=== PATIENT | female | born 1990 | race Caucasian/White ===

== ENCOUNTER 2017-03-15 19:38 | Inpatient (IN) ==
[2017-03-15 20:30] LABS: Basophils % 0.4 % (0.0-0.8); Eosinophils # 0.1 10*3/uL (0.0-0.87); Eosinophils % 1.3 % (0.00-10.9); Hematocrit 32.5 VOL% (35.7-47.0); Hemoglobin 10.9 GM/DL (12.0-16.0); Immature Granulocytes Absolute 0.11 #; Lymphocytes # 1.1 10*3/uL (1.4-4.0); Lymphocytes % 10.4 % (21.3-54.2); Mean Corpuscular HGB Conc 33.5 GM/DL (32-36); Mean Corpuscular Hemoglobin 28 PG (27-34); Mean Corpuscular Volume 84.2 FL (87-102); Mean Platelet Volume 11.4 FL (9.6-12.0); Monocytes # 0.8 10*3/uL (0.11-0.8); Monocytes % 7.1 % (1.7-12.7); Neutrophils # 8.6 10*3/uL (1.4-7.4); Neutrophils % 79.8 % (38.7-73.9); Platelet Count 210 T/CUMM (130-400); Red Blood Count 3.86 MC/CUMM (3.8-5.5); Red Cell Distribution Width 11.6 % (9.3-17.3); White Blood Count 10.8 T/CUMM (4-12)
[2017-03-15 20:53] LABS: INR 0.9; PT Patient Result 9.4 SECS; Partial Thromboplastin Time 24.2 SECS (0-40)
[2017-03-15] MEDS: LABETALOL 200 MG TABLET PO SCH (21:06)
[2017-03-15 21:09] LABS: Albumin 2.8 G/DL (3.4-5.0); Bilirubin,Total 0.4 MG/DL (0.2-1.0); Calcium 8.4 MG/DL (8.5-10.1); Total Protein 6.5 G/DL (6.4-8.3)
[2017-03-15] MEDS: LACTATED RINGERS 1,000 ML IV SCH (21:11)
[2017-03-16] MEDS ORDERED: AMPICILLIN INJ 2,000 MG in SODIUM CHLORIDE 0.9% 100 ML IV ONE
[2017-03-16] MEDS: BUTORPHANOL 2 MG/ML VIAL IV PRN ×2 (00:59→05:56)
[2017-03-16] MEDS: ONDANSETRON 4 MG/2 ML VIAL IV PRN (01:00)
[2017-03-16] MEDS ORDERED: AMPICILLIN INJ 1,000 MG in SODIUM CHLORIDE 0.9% 100 ML IV SCH (04:00)
[2017-03-16] MEDS ORDERED: OXYTOCIN/LR 20 UNIT/1,000 ML BAG IV ONE ×2 (08:09→09:22)
[2017-03-16] MEDS ORDERED: FAMOTIDINE 20 MG/2 ML VIAL IV ONE (08:09)
[2017-03-16] MEDS ORDERED: CITRIC ACID/SODIUM CITRATE 30 ML UDCUP PO ONE (08:09)
[2017-03-16] MEDS ORDERED: AMPICILLIN 2,000 MG VIAL ONE (08:14)
[2017-03-16] MEDS ORDERED: MEASLES/MUMPS/RUBELLA VACCINE 0.5 ML VIAL SUBCUT ONE (09:22)
[2017-03-16] MEDS ORDERED: ACETAMINOPHEN 325 MG TABLET PO PRN (09:22)
[2017-03-16] MEDS ORDERED: WITCH HAZEL PADS 100/JAR TOP PRN (09:22)
[2017-03-16] MEDS ORDERED: DIPH/TET/ACEL PERT BOOSTER VACCINE 0.5 ML VIAL IM ONE (09:22)
[2017-03-16] MEDS ORDERED: BENZOCAINE 20%/MENTHOL 0.5% SPRAY 56 GM CAN TOP PRN (09:22)
[2017-03-16] MEDS ORDERED: BISACODYL 10 MG SUPP RECTAL PRN (09:22)
[2017-03-16] MEDS ORDERED: RHO(D) IMMUNE GLOBULIN 300 MCG SYRINGE IM ONE (09:22)
[2017-03-16] MEDS ORDERED: HYDROCORTISONE 2.5% RECTAL CREAM 30 GM TUBE TOP PRN (09:22)
[2017-03-16] MEDS ORDERED: ONDANSETRON 4 MG/2 ML VIAL IV PRN ×2 (09:22→09:47)
[2017-03-16] MEDS ORDERED: oxyCODONE/ACETAMINOPHEN 5-325 MG TABLET PO PRN (09:22)
[2017-03-16] MEDS ORDERED: LANOLIN 50% CREAM 0.3 OZ TUBE TOP PRN (09:22)
[2017-03-16] MEDS ORDERED: fentaNYL 100 MCG/2 ML VIAL ONE (09:36)
[2017-03-16] MEDS ORDERED: MORPHINE 10 MG/10 ML VIAL ONE (09:37)
[2017-03-16] MEDS ORDERED: KETOROLAC 30 MG/1 ML VIAL ONE (09:39)
[2017-03-16] MEDS ORDERED: diphenhydrAMINE 50 MG/1 ML VIAL IV PRN (09:47)
[2017-03-16] MEDS ORDERED: hydrOXYzine HCL 25 MG/1 ML VIAL IM PRN (09:47)
[2017-03-16] MEDS ORDERED: HYDROmorphone 2 MG/1 ML VIAL IV PRN (09:47)
[2017-03-16] MEDS: LABETALOL 200 MG TABLET PO SCH ×2 (11:03→21:45)
[2017-03-16 11:06] LABS: Apearance,Urine Slightly Hazy (Clear); Bilirubin,Urine Negative (Negative); Blood, Urine Small mg/dL (Negative); Glucose,Urine (UA) Negative (Negative); Ketones,Urine Negative (Negative); Nitrite,Urine Negative (Negative); Protein,Urine Negative; RBC,Urine <1 /HPF (0-4); Squamous Epithelial Cell,Urine Occasional /HPF (0-10); Urine Color Yellow (Yellow); Urine Specific Gravity 1.004 (1.001-1.035); Urine Urobilinogen < 2.0 EU/DL (0.2-1.0)
[2017-03-16] MEDS ORDERED: ACETAMINOPHEN 1,000 MG/100 ML VIAL IV ONE (15:39)
[2017-03-16] MEDS ORDERED: LABETALOL 100 MG TABLET PO SCH (16:41)
[2017-03-16] MEDS ORDERED: ceFAZolin 1,000 MG VIAL IM SCH (17:30)
[2017-03-16] MEDS ORDERED: ceFAZolin 1,000 MG VIAL IV SCH (17:56)
[2017-03-16] MEDS: ceFAZolin 1,000 MG in SYRINGE 1 EACH IV SCH (18:18)
[2017-03-16] MEDS: LACTATED RINGERS 1,000 ML IV SCH ×3 (20:34→21:28)
[2017-03-16] MEDS: SODIUM CHLORIDE 0.9% 1,000 ML IV SCH (21:28)
[2017-03-16] MEDS: DOCUSATE SODIUM 100 MG CAPSULE PO SCH (21:45)
[2017-03-17] MEDS: IBUPROFEN 800 MG TABLET PO PRN ×4 (00:35→21:11)
[2017-03-17] MEDS: oxyCODONE/ACETAMINOPHEN 5-325 MG TABLET PO PRN ×2 (00:35→16:49)
[2017-03-17] MEDS ORDERED: SODIUM CHLORIDE 0.9% 50 ML IV ONE (02:00)
[2017-03-17] MEDS: ceFAZolin 1,000 MG in SYRINGE 1 EACH IV SCH ×2 (02:03→09:40)
[2017-03-17] MEDS: LACTATED RINGERS 1,000 ML IV SCH (04:31)
[2017-03-17 06:18] LABS: Basophils % 0.2 % (0.0-0.8); Eosinophils # 0.1 10*3/uL (0.0-0.87); Eosinophils % 0.8 % (0.00-10.9); Hematocrit 23.7 VOL% (35.7-47.0); Hemoglobin 7.6 GM/DL (12.0-16.0); Immature Granulocytes % 0.7 %; Mean Corpuscular HGB Conc 32.1 GM/DL (32-36); Mean Corpuscular Hemoglobin 27 PG (27-34); Mean Corpuscular Volume 84.9 FL (87-102); Mean Platelet Volume 11.2 FL (9.6-12.0); Monocytes # 0.9 10*3/uL (0.11-0.8); Monocytes % 6.7 % (1.7-12.7); Neutrophils # 11.6 10*3/uL (1.4-7.4); Neutrophils % 84.6 % (38.7-73.9); Platelet Count 186 T/CUMM (130-400); Red Blood Count 2.79 MC/CUMM (3.8-5.5); Red Cell Distribution Width 11.8 % (9.3-17.3); White Blood Count 13.7 T/CUMM (4-12)
[2017-03-17] MEDS: FERROUS SULFATE 325 MG TABLET PO SCH ×3 (09:39→21:11)
[2017-03-17] MEDS: LABETALOL 200 MG TABLET PO SCH ×2 (09:39→21:11)
[2017-03-17] MEDS: DOCUSATE SODIUM 100 MG CAPSULE PO SCH ×2 (09:39→21:11)
[2017-03-17] MEDS: ONDANSETRON 4 MG/2 ML VIAL IV PRN (16:50)
[2017-03-17] MEDS ORDERED: oxyCODONE/ACETAMINOPHEN 5-325 MG TABLET PO PRN (17:05)
[2017-03-17] MEDS: MAGNESIUM HYDROXIDE SUSP 30 ML UDCUP PO PRN (22:24)
[2017-03-18] MEDS: IBUPROFEN 800 MG TABLET PO PRN ×2 (05:12→16:38)
[2017-03-18] MEDS: oxyCODONE/ACETAMINOPHEN 5-325 MG TABLET PO PRN ×5 (05:13→21:10)
[2017-03-18] MEDS: LACTATED RINGERS 1,000 ML IV SCH (05:32)
[2017-03-18] MEDS: SODIUM CHLORIDE 0.9% 1,000 ML IV SCH (05:32)
[2017-03-18 07:58] LABS: Microcytosis 1+
[2017-03-18] MEDS: FERROUS SULFATE 325 MG TABLET PO SCH ×3 (08:57→21:11)
[2017-03-18] MEDS: LABETALOL 200 MG TABLET PO SCH ×2 (08:58→21:10)
[2017-03-18] MEDS: DOCUSATE SODIUM 100 MG CAPSULE PO SCH ×2 (08:58→21:10)
[2017-03-18] MEDS: MAGNESIUM HYDROXIDE SUSP 30 ML UDCUP PO PRN (16:38)
[2017-03-19] MEDS: oxyCODONE/ACETAMINOPHEN 5-325 MG TABLET PO PRN ×2 (04:22→11:50)
[2017-03-19] MEDS: IBUPROFEN 800 MG TABLET PO PRN ×2 (04:22→09:58)
[2017-03-19] MEDS: LABETALOL 200 MG TABLET PO SCH (09:55)
[2017-03-19] MEDS: FERROUS SULFATE 325 MG TABLET PO SCH (09:55)
[2017-03-19] MEDS: DOCUSATE SODIUM 100 MG CAPSULE PO SCH (09:55)
[2017-03-19 10:29] VITALS: BP 123/80
== END 2017-03-19 14:20 | disposition home or self-care (01) | DRG 766 ==
LOC: N.LAB 19:38 → N.LD 19:45 → N.OB 03-16 16:47
PROVIDERS: ADMIT Specialist; ATTEND Specialist
PROC: LDCSECT (ICD-10-PCS; 2017-03-16 08:00)

== ENCOUNTER 2022-03-22 19:52 | Inpatient (IN) ==
[2022-03-22 20:25] LABS: Mucus,Urine Occasional /LPF (Occasional); RBC,Urine 2 /HPF (0-4); Squamous Epithelial Cell,Urine Occasional /HPF (0-10)
[2022-03-22 20:26] LABS: Bilirubin,Urine Negative (Negative); Blood, Urine Negative (Negative); Glucose,Urine (UA) Negative (Negative); Ketones,Urine Negative (Negative); Nitrite,Urine Negative (Negative); Protein,Urine Negative (Negative); Urine Appearance Clear (Clear); Urine Color Yellow (Yellow); Urine pH 7.5 (4.5-8.0)
[2022-03-22] MEDS ORDERED: BUTORPHANOL 2 MG/ML VIAL IV PRN (20:46)
[2022-03-22] MEDS ORDERED: MEPERIDINE 50 MG/1 ML VIAL IV PRN (20:46)
[2022-03-22] MEDS ORDERED: CARBOPROST TROMETHAMINE 250 MCG/ML AMP IM PRN (20:46)
[2022-03-22] MEDS ORDERED: METHYLERGONOVINE 0.2 MG/1 ML AMP IM PRN (20:46)
[2022-03-22] MEDS ORDERED: ONDANSETRON 4 MG/2 ML VIAL IV PRN (20:46)
[2022-03-22] MEDS ORDERED: LACTATED RINGERS 250 ML IV ONE (20:46)
[2022-03-22] MEDS ORDERED: MEPERIDINE 25 MG/1 ML VIAL IV PRN (20:46)
[2022-03-22] MEDS ORDERED: TRANEXAMIC ACID 1,000 MG in SODIUM CHLORIDE 0.9% 100 ML IV PRN (20:46)
[2022-03-22] MEDS ORDERED: miSOPROStoL 200 MCG TABLET RECTAL PRN (20:46)
[2022-03-22] MEDS ORDERED: LACTATED RINGERS 500 ML IV PRN (20:46)
[2022-03-22] MEDS ORDERED: OXYTOCIN/LR 20 UNIT/1,000 ML BAG IV ONE (20:46)
[2022-03-22] MEDS ORDERED: FAMOTIDINE 20 MG/2 ML VIAL IV SCH (21:00)
[2022-03-22 21:32] LABS: Basophils % 0.2 % (0.0-0.8); Eosinophils # 0.2 10*3/uL (0.0-0.87); Eosinophils % 1.4 % (0.00-10.9); Hematocrit 34.8 VOL% (35.7-47.0); Hemoglobin 11.4 GM/DL (12.0-16.0); Immature Granulocytes % 0.8 %; Immature Granulocytes Absolute 0.09 #; Lymphocytes # 1.3 10*3/uL (1.4-4.0); Lymphocytes % 10.7 % (21.3-54.2); Mean Corpuscular HGB Conc 32.8 GM/DL (32-36); Mean Corpuscular Volume 81.3 FL (87-102); Mean Platelet Volume 11.5 FL (9.6-12.0); Monocytes # 0.9 10*3/uL (0.11-0.8); Monocytes % 7.4 % (1.7-12.7); Neutrophils % 79.5 % (38.7-73.9); Platelet Count 240 T/CUMM (130-400); Red Blood Count 4.28 MC/CUMM (3.8-5.5); Red Cell Distribution Width 12.9 % (9.3-17.3); White Blood Count 11.7 T/CUMM (4-12)
[2022-03-22] MEDS: LACTATED RINGERS 1,000 ML IV SCH (21:33)
[2022-03-22] MEDS: BUTORPHANOL 1 MG/ML VIAL IV PRN ×2 (22:22→23:40)
[2022-03-23] MEDS ORDERED: CITRIC ACID/SODIUM CITRATE 30 ML UDCUP PO ONE (01:00)
[2022-03-23] MEDS ORDERED: diphenhydrAMINE 50 MG/1 ML VIAL IV PRN ×2 (01:00)
[2022-03-23] MEDS ORDERED: ePHEDrine 50 MG/ML VIAL IV PRN (01:00)
[2022-03-23] MEDS ORDERED: PROMETHAZINE 25 MG/1 ML VIAL IM ONE (01:00)
[2022-03-23] MEDS ORDERED: fentaNYL 2 MCG/ROPIV 0.2% EPID 100 ML EPIDURAL SCH (01:00)
[2022-03-23] MEDS ORDERED: NALOXONE 0.4 MG/ML VIAL IV PRN (01:00)
[2022-03-23] MEDS ORDERED: ONDANSETRON 4 MG/2 ML VIAL IV ONE (01:00)
[2022-03-23] MEDS ORDERED: hydrOXYzine HCL 25 MG/1 ML VIAL IM PRN (01:00)
[2022-03-23] MEDS ORDERED: CITRIC ACID/SODIUM CITRATE 30 ML UDCUP ONE (01:07)
[2022-03-23] MEDS ORDERED: ePHEDrine 50 MG/ML VIAL ONE (01:18)
[2022-03-23] MEDS ORDERED: fentaNYL 2 MCG/ROPIV 0.2% EPID 100 ML EPIDURAL ONE (01:18)
[2022-03-23] MEDS: LACTATED RINGERS 1,000 ML IV SCH (02:42)
[2022-03-23] MEDS ORDERED: OXYTOCIN/LR 20 UNIT/1,000 ML BAG IV ONE ×2 (04:48→12:43)
[2022-03-23] MEDS ORDERED: OXYTOCIN/LR 20 UNIT/1,000 ML BAG IV SCH (05:00)
[2022-03-23] MEDS ORDERED: SODIUM CHLORIDE 0.9% 0 ML IV ONE (05:31)
[2022-03-23] MEDS ORDERED: METHYLERGONOVINE 0.2 MG/1 ML AMP ONE (05:31)
[2022-03-23] MEDS ORDERED: miSOPROStoL 200 MCG TABLET ONE (05:31)
[2022-03-23] MEDS ORDERED: TRANEXAMIC ACID 1,000 MG/10 ML VIAL ONE (05:31)
[2022-03-23] MEDS ORDERED: CARBOPROST TROMETHAMINE 250 MCG/ML AMP IM ONE (05:32)
[2022-03-23] MEDS ORDERED: oxyCODONE/ACETAMINOPHEN 5-325 MG TABLET PO PRN (12:43)
[2022-03-23] MEDS ORDERED: ACETAMINOPHEN 325 MG TABLET PO PRN (12:43)
[2022-03-23] MEDS ORDERED: ONDANSETRON 4 MG/2 ML VIAL IV PRN (12:43)
[2022-03-23] MEDS ORDERED: HYDROCORTISONE 2.5% RECTAL CREAM 30 GM TUBE TOP PRN (12:43)
[2022-03-23] MEDS ORDERED: WITCH HAZEL PADS 100/JAR TOP PRN (12:43)
[2022-03-23] MEDS ORDERED: BISACODYL 10 MG SUPP RECTAL PRN (12:43)
[2022-03-23] MEDS ORDERED: MEASLES/MUMPS/RUBELLA VACCINE 0.5 ML VIAL SUBCUT ONE (12:43)
[2022-03-23] MEDS ORDERED: LANOLIN 50% CREAM 0.3 OZ TUBE TOP PRN (12:43)
[2022-03-23] MEDS ORDERED: RHO(D) IMMUNE GLOBULIN 300 MCG SYRINGE IM ONE (12:43)
[2022-03-23] MEDS ORDERED: DIPH/TET/ACEL PERT BOOSTER VACCINE 0.5 ML VIAL IM ONE (12:43)
[2022-03-23] MEDS: IBUPROFEN 800 MG TABLET PO PRN ×2 (14:31→20:15)
[2022-03-23] MEDS: BENZOCAINE 20%/MENTHOL 0.5% SPRAY 56 GM CAN TOP PRN (14:31)
[2022-03-23] MEDS: oxyCODONE/ACETAMINOPHEN 5-325 MG TABLET PO PRN (18:47)
[2022-03-23] MEDS: DOCUSATE SODIUM 100 MG CAPSULE PO SCH (21:20)
[2022-03-24] MEDS: IBUPROFEN 800 MG TABLET PO PRN ×4 (01:26→21:30)
[2022-03-24] MEDS: oxyCODONE/ACETAMINOPHEN 5-325 MG TABLET PO PRN ×4 (01:27→19:04)
[2022-03-24 05:57] LABS: Basophils % 0.2 % (0.0-0.8); Eosinophils # 0.1 10*3/uL (0.0-0.87); Eosinophils % 0.4 % (0.00-10.9); Hemoglobin 8.7 GM/DL (12.0-16.0); Immature Granulocytes Absolute 0.18 #; Lymphocytes # 1.2 10*3/uL (1.4-4.0); Lymphocytes % 6.6 % (21.3-54.2); Mean Corpuscular HGB Conc 32.2 GM/DL (32-36); Mean Corpuscular Volume 82.8 FL (87-102); Mean Platelet Volume 10.7 FL (9.6-12.0); Monocytes # 1.2 10*3/uL (0.11-0.8); Monocytes % 6.4 % (1.7-12.7); NRBC # 0.02 10*3/uL; Neutrophils % 85.4 % (38.7-73.9); Platelet Count 184 T/CUMM (130-400); Red Blood Count 3.26 MC/CUMM (3.8-5.5); Red Cell Distribution Width 13.3 % (9.3-17.3); White Blood Count 17.8 T/CUMM (4-12)
[2022-03-24] MEDS: MULTIVITAMIN (PRENATAL) TABLET PO SCH ×2 (07:34→09:58)
[2022-03-24] MEDS: DOCUSATE SODIUM 100 MG CAPSULE PO SCH ×3 (07:34→21:29)
[2022-03-24] MEDS ORDERED: ceFAZolin 2,000 MG/50 ML DUPLEX IV ONE (09:30)
[2022-03-24] MEDS: FERROUS SULFATE 325 MG TABLET PO SCH ×2 (09:32→22:13)
[2022-03-24 12:19] LABS: Basophils % 0.2 % (0.0-0.8); Eosinophils # 0.1 10*3/uL (0.0-0.87); Eosinophils % 0.7 % (0.00-10.9); Hematocrit 23.6 VOL% (35.7-47.0); Hemoglobin 7.7 GM/DL (12.0-16.0); Immature Granulocytes % 0.7 %; Immature Granulocytes Absolute 0.12 #; Lymphocytes # 0.9 10*3/uL (1.4-4.0); Mean Corpuscular HGB Conc 32.6 GM/DL (32-36); Mean Corpuscular Volume 82.5 FL (87-102); Mean Platelet Volume 10.6 FL (9.6-12.0); Monocytes # 1.1 10*3/uL (0.11-0.8); Monocytes % 6.4 % (1.7-12.7); Platelet Count 181 T/CUMM (130-400); Red Blood Count 2.86 MC/CUMM (3.8-5.5); Red Cell Distribution Width 13.3 % (9.3-17.3); White Blood Count 17.5 T/CUMM (4-12)
[2022-03-24] MEDS ORDERED: ONDANSETRON 4 MG TABLET PO PRN (12:24)
[2022-03-24 18:01] LABS: Basophils % 0.1 % (0.0-0.8); Eosinophils # 0.1 10*3/uL (0.0-0.87); Eosinophils % 0.7 % (0.00-10.9); Hematocrit 24.8 VOL% (35.7-47.0); Immature Granulocytes % 0.9 %; Immature Granulocytes Absolute 0.15 #; Lymphocytes # 1.1 10*3/uL (1.4-4.0); Lymphocytes % 6.2 % (21.3-54.2); Mean Corpuscular HGB Conc 32.3 GM/DL (32-36); Mean Corpuscular Volume 82.1 FL (87-102); Mean Platelet Volume 10.7 FL (9.6-12.0); Monocytes # 1.1 10*3/uL (0.11-0.8); Neutrophils % 86.1 % (38.7-73.9); Platelet Count 212 T/CUMM (130-400); Red Blood Count 3.02 MC/CUMM (3.8-5.5); Red Cell Distribution Width 13.3 % (9.3-17.3); White Blood Count 17.4 T/CUMM (4-12)
[2022-03-24] MEDS ORDERED: AMOXICILLIN/CLAV 875 MG TABLET PO SCH (21:00)
[2022-03-24] MEDS: ceFAZolin 2,000 MG/50 ML DUPLEX IV SCH (21:29)
[2022-03-25] MEDS: oxyCODONE/ACETAMINOPHEN 5-325 MG TABLET PO PRN (02:03)
[2022-03-25] MEDS: ceFAZolin 2,000 MG/50 ML DUPLEX IV SCH (05:09)
[2022-03-25] MEDS: BENZOCAINE 20%/MENTHOL 0.5% SPRAY 56 GM CAN TOP PRN (06:57)
[2022-03-25 06:59] VITALS: BP 106/64
[2022-03-25] MEDS: MULTIVITAMIN (PRENATAL) TABLET PO SCH (08:27)
[2022-03-25] MEDS: DOCUSATE SODIUM 100 MG CAPSULE PO SCH (08:28)
[2022-03-25] MEDS: FERROUS SULFATE 325 MG TABLET PO SCH (08:28)
[2022-03-25 13:57] LABS: Basophils % 0.1 % (0.0-0.8); Eosinophils # 0.2 10*3/uL (0.0-0.87); Eosinophils % 1.4 % (0.00-10.9); Hematocrit 24.4 VOL% (35.7-47.0); Hemoglobin 7.8 GM/DL (12.0-16.0); Immature Granulocytes % 0.8 %; Immature Granulocytes Absolute 0.13 #; Lymphocytes # 0.8 10*3/uL (1.4-4.0); Lymphocytes % 5.2 % (21.3-54.2); Mean Corpuscular Volume 81.9 FL (87-102); Mean Platelet Volume 10.4 FL (9.6-12.0); Monocytes # 0.7 10*3/uL (0.11-0.8); Monocytes % 4.4 % (1.7-12.7); Neutrophils % 88.1 % (38.7-73.9); Platelet Count 250 T/CUMM (130-400); Red Blood Count 2.98 MC/CUMM (3.8-5.5); Red Cell Distribution Width 13.5 % (9.3-17.3); White Blood Count 15.4 T/CUMM (4-12)
== END 2022-03-25 14:15 | disposition home or self-care (01) | DRG 768 ==
LOC: N.LDOUT 19:52 → N.LD 19:55 → N.OB 03-23 13:44
PROVIDERS: ADMIT Specialist; ATTEND Specialist